=== PATIENT | male | born 1985 | race Caucasian/White ===

== ENCOUNTER 2022-01-11 13:12 | Inpatient (IN) | payer BC ==
[2022-01-11 14:10] VITALS: BMI 31.2
[2022-01-11] MEDS ORDERED: LOPERAMIDE HCL 2 MG CAPSULE PO PRN (14:32)
[2022-01-11] MEDS ORDERED: NALOXONE HCL (KLOXXADO) 8 MG SPRAY NS PRN (14:32)
[2022-01-11] MEDS ORDERED: BENZOCAINE/MENTHOL (CHLORASEPTIC ) LOZENGE MM PRN (14:32)
[2022-01-11] MEDS ORDERED: IBUPROFEN 600 MG TABLET (FP) PO PRN (14:32)
[2022-01-11] MEDS ORDERED: POLYETHYLENE GLYCOL (HEALTHYLAX) 3350 17 GM PACKET PO PRN (14:32)
[2022-01-11] MEDS ORDERED: MAGNESIUM HYDROX 2400MG/30ML ORAL SUSPENSION 30 ML CUP PO PRN (14:32)
[2022-01-11] MEDS ORDERED: LORazepam 2 MG TABLET PO ONE (14:32)
[2022-01-11] MEDS ORDERED: DICYCLOMINE HCL 10 MG CAPSULE PO PRN (14:32)
[2022-01-11] MEDS ORDERED: ONDANSETRON *ODT* 4 MG TABLET SL PRN (14:32)
[2022-01-11] MEDS ORDERED: NICOTINE 10 MG CARTRIDGE (INHALER) IH PRN (14:32)
[2022-01-11] MEDS ORDERED: ACETAMINOPHEN 325 MG TABLET (FP) PO PRN ×2 (14:32)
[2022-01-11] MEDS ORDERED: BISMUTH SUBSALICYLATE 524 MG/30 ML PO PRN (14:32)
[2022-01-11] MEDS ORDERED: MAG HYDROX/AL HYDROX/SIMETH 30 ML UNIT-DOSE CUP PO PRN (14:32)
[2022-01-11] MEDS ORDERED: OXYMETAZOLINE 0.05% NASAL SOLUTION 15 ML BOTTLE NS PRN (14:35)
[2022-01-11] MEDS ORDERED: LORazepam 1 MG TABLET PO PRN (14:45)
[2022-01-11] MEDS ORDERED: guaiFENesin/D-METHORPHAN HB 10 ML UNIT-DOSE CUPS PO PRN (14:56)
[2022-01-11] MEDS: LORazepam 2 MG TABLET PO SCH ×2 (17:49→22:25)
[2022-01-11] MEDS: hydrOXYzine PAMOATE 25 MG CAPSULE (FP) PO PRN (22:25)
[2022-01-11] MEDS: levETIRAcetam 500 MG TABLET (FP) PO SCH (22:25)
[2022-01-11] MEDS: THIAMINE HCL 100 MG TABLET (FP) PO SCH (22:25)
[2022-01-11] MEDS: MELATONIN 5 MG TABLETS PO SCH (22:25)
[2022-01-11] MEDS: AMOX TR/POT CLAV 875MG/125MG TABLETS (FP) PO SCH (22:25)
[2022-01-12] MEDS: LORazepam 2 MG TABLET PO SCH ×4 (05:17→22:14)
[2022-01-12] MEDS: PRENATAL VITAMINS W/ FOLIC ACID TABLET (FP) PO SCH (10:54)
[2022-01-12] MEDS: AMOX TR/POT CLAV 875MG/125MG TABLETS (FP) PO SCH ×2 (10:54→22:14)
[2022-01-12] MEDS: hydrOXYzine PAMOATE 25 MG CAPSULE (FP) PO PRN ×2 (10:54→22:15)
[2022-01-12] MEDS: levETIRAcetam 500 MG TABLET (FP) PO SCH ×2 (10:54→22:15)
[2022-01-12] MEDS: METHOCARBAMOL 500 MG TABLET PO PRN (10:54)
[2022-01-12 12:22] LABS: CALCIUM 8.4 mg/dL (8.5-10.1)
[2022-01-12 12:23] LABS: ALBUMIN 3.1 g/dl (3.4-5.0); BLOOD UREA NITROGEN 5.6 mg/dL (7-18)
[2022-01-12 12:27] LABS: CREATININE 0.5 mg/dL (0.55-1.3)
[2022-01-12 12:28] LABS: TOT PROT 6.4 g/dl (6.4-8.2)
[2022-01-12 12:29] LABS: BILIRUBIN,TOTAL 1.9 mg/dL (0.2-1)
[2022-01-12 12:44] LABS: HEMOGLOBIN 14.4 GM/dL (11.7-16.9); MCH 32.1 pg (25.7-33.7); MCHC 32.8 g/dl (32.0-35.9); MEAN CELL VOLUME 97.9 fl (80-96); MEAN PLT VOLUME 8.6 fl (7.5-11.1); PLATELET COUNT 186 10^3/uL (134-434); RDW 15.4 % (11.9-15.9)
[2022-01-12] MEDS: LACTULOSE 20 GM/30 ML UDC (FOR ORAL USE ONLY) PO SCH ×3 (14:09→22:15)
[2022-01-12] MEDS: THIAMINE HCL 100 MG TABLET (FP) PO SCH (22:15)
[2022-01-12] MEDS: MELATONIN 5 MG TABLETS PO SCH (22:15)
[2022-01-13] MEDS: LORazepam 1 MG TABLET PO SCH ×4 (05:37→22:48)
[2022-01-13] MEDS: LACTULOSE 20 GM/30 ML UDC (FOR ORAL USE ONLY) PO SCH ×4 (10:20→22:49)
[2022-01-13] MEDS: PRENATAL VITAMINS W/ FOLIC ACID TABLET (FP) PO SCH (10:20)
[2022-01-13] MEDS: AMOX TR/POT CLAV 875MG/125MG TABLETS (FP) PO SCH ×2 (10:20→22:47)
[2022-01-13] MEDS: levETIRAcetam 500 MG TABLET (FP) PO SCH ×2 (10:20→22:47)
[2022-01-13] MEDS: METHOCARBAMOL 500 MG TABLET PO PRN (10:22)
[2022-01-13 10:46] LABS: EPI CELLS 26 /uL (0-25.1); HYALINE CASTS 1 /uL (0-3.1); URINE APPEARANCE CLEAR; URINE BACTERIA 10 /uL (0-1359); URINE BILIRUBIN NEGATIVE (NEGATIVE); URINE COLOR DK YELLOW; URINE GLUCOSE (UA) NEGATIVE (NEGATIVE); URINE KETONE TRACE (NEGATIVE); URINE LEUK ESTERASE TRACE (NEGATIVE); URINE NITRITE NEGATIVE (NEGATIVE); URINE PROTEIN TRACE (NEGATIVE); URINE RBC 7 /uL (0-23.9); URINE UROBILINOGEN 0.2 mg/dL (0.2-1.0); URINE WBC 47 /uL (0-25.8)
[2022-01-13] MEDS: IBUPROFEN 400 MG TABLET (FP) PO PRN (17:40)
[2022-01-13] MEDS: THIAMINE HCL 100 MG TABLET (FP) PO SCH (22:47)
[2022-01-13] MEDS: MELATONIN 5 MG TABLETS PO SCH (22:49)
[2022-01-14] MEDS ORDERED: LORazepam 0.5 MG TABLET PO PRN
[2022-01-14] MEDS: LORazepam 0.5 MG TABLET PO SCH ×4 (05:36→22:07)
[2022-01-14] MEDS: IBUPROFEN 400 MG TABLET (FP) PO PRN (05:37)
[2022-01-14] MEDS: PRENATAL VITAMINS W/ FOLIC ACID TABLET (FP) PO SCH (10:10)
[2022-01-14] MEDS: levETIRAcetam 500 MG TABLET (FP) PO SCH ×2 (10:10→22:06)
[2022-01-14] MEDS: AMOX TR/POT CLAV 875MG/125MG TABLETS (FP) PO SCH ×2 (10:10→22:06)
[2022-01-14] MEDS: LACTULOSE 20 GM/30 ML UDC (FOR ORAL USE ONLY) PO SCH ×4 (10:14→22:24)
[2022-01-14 10:37] LABS: ALBUMIN 3.3 g/dl (3.4-5.0); BLOOD UREA NITROGEN 11.7 mg/dL (7-18); CALCIUM 9.1 mg/dL (8.5-10.1)
[2022-01-14 10:40] LABS: CREATININE 0.7 mg/dL (0.55-1.3)
[2022-01-14 10:42] LABS: BILIRUBIN,TOTAL 0.8 mg/dL (0.2-1)
[2022-01-14] MEDS: THIAMINE HCL 100 MG TABLET (FP) PO SCH (22:06)
[2022-01-14] MEDS: MELATONIN 5 MG TABLETS PO SCH (22:07)
[2022-01-15] MEDS ORDERED: LORazepam 0.5 MG TABLET PO ONE (05:00)
[2022-01-15 09:16] VITALS: BP 128/71; PULSE 85; RESP 16; TEMP 97.3
[2022-01-15] MEDS: LACTULOSE 20 GM/30 ML UDC (FOR ORAL USE ONLY) PO SCH (10:43)
[2022-01-15] MEDS: AMOX TR/POT CLAV 875MG/125MG TABLETS (FP) PO SCH (10:43)
[2022-01-15] MEDS: PRENATAL VITAMINS W/ FOLIC ACID TABLET (FP) PO SCH (10:44)
[2022-01-15] MEDS: levETIRAcetam 500 MG TABLET (FP) PO SCH (10:44)
== END 2022-01-15 09:30 | disposition home or self-care (01) | DRG 775 ==
LOC: YASAS 13:12 → Y6N 15:28
PROVIDERS: ADMIT Allergy & Immunology; ATTEND Surgery
PROC: HZ2ZZZZ Detoxification Services for Substance Abuse Treatment (ICD-10-PCS; principal; 2022-01-11)
DX: F10.230 Alcohol dependence with withdrawal, uncomplicated (principal); F17.210 Nicotine dependence, cigarettes, uncomplicated; G40.909 Epilepsy, unspecified, not intractable, without status epilepticus; J32.9 Chronic sinusitis, unspecified; M54.30 Sciatica, unspecified side; R79.89 Other specified abnormal findings of blood chemistry
CPT/HCPCS: 36415; 80053; 81003; 82140; 85027; 86780; 87811; 93005; 93010; C9803-CS; U0003; U0005

== ENCOUNTER 2023-04-07 09:57 | Inpatient (IN) | payer BC ==
[2023-04-07 10:31] VITALS: BMI 26.2
[2023-04-07] MEDS ORDERED: ACETAMINOPHEN 325 MG TABLET (FP) PO PRN (11:17)
[2023-04-07] MEDS ORDERED: BISMUTH SUBSALICYLATE 262 MG/15 ML BTL PO PRN (11:17)
[2023-04-07] MEDS ORDERED: NALOXONE HCL 0.4 MG/ML VIAL IM PRN (11:17)
[2023-04-07] MEDS ORDERED: MAGNESIUM HYDROX 2400MG/30ML ORAL SUSPENSION 30 ML CUP PO PRN (11:17)
[2023-04-07] MEDS ORDERED: NALOXONE HCL (KLOXXADO) 8 MG SPRAY NS PRN (11:17)
[2023-04-07] MEDS ORDERED: NICOTINE POLACRILEX 2 MG GUM BUC PRN (11:17)
[2023-04-07] MEDS ORDERED: BENZOCAINE/MENTHOL (CHLORASEPTIC ) LOZENGE MM PRN (11:17)
[2023-04-07] MEDS ORDERED: MAG HYDROX/AL HYDROX/SIMETH 30 ML UNIT-DOSE CUP PO PRN (11:17)
[2023-04-07] MEDS ORDERED: LOPERAMIDE HCL 2 MG CAPSULE PO PRN (11:17)
[2023-04-07] MEDS ORDERED: guaiFENesin 600 MG TABLET.ER (FP) PO PRN (11:17)
[2023-04-07] MEDS ORDERED: LORazepam 1 MG TABLET PO PRN (11:17)
[2023-04-07] MEDS ORDERED: BENZONATATE 200 MG CAPSULE PO PRN (11:17)
[2023-04-07] MEDS ORDERED: POLYETHYLENE GLYCOL (HEALTHYLAX) 3350 17 GM PACKET PO PRN (11:17)
[2023-04-07] MEDS ORDERED: METHOCARBAMOL 500 MG TABLET PO PRN (11:17)
[2023-04-07] MEDS ORDERED: DICYCLOMINE HCL 10 MG CAPSULE PO PRN (11:17)
[2023-04-07] MEDS ORDERED: levETIRAcetam 500 MG TABLET (FP) PO ONE (11:45)
[2023-04-07] MEDS ORDERED: LORazepam 2 MG TABLET ONE (11:46)
[2023-04-07] MEDS: LORazepam 2 MG TABLET PO ONE (11:48)
[2023-04-07] MEDS: levETIRAcetam 500 MG TABLET (FP) PO SCH (11:49)
[2023-04-07] MEDS: LORazepam 2 MG TABLET PO SCH (17:31)
[2023-04-07] MEDS: MELATONIN 5 MG TABLETS PO SCH (22:04)
[2023-04-07] MEDS: THIAMINE HCL 100 MG TABLET (FP) PO SCH (22:04)
[2023-04-08] MEDS: PRENATAL VITAMINS W/ FOLIC ACID TABLET (FP) PO SCH (10:39)
[2023-04-08 10:41] LABS: HEMATOCRIT 39.9 % (35.4-49); HEMOGLOBIN 13.9 GM/dL (11.7-16.9); MCH 34.3 pg (25.7-33.7); MCHC 34.8 g/dl (32.0-35.9); MEAN CELL VOLUME 98.7 fl (80-96); MEAN PLT VOLUME 8.4 fl (7.5-11.1); PLATELET COUNT 218 10^3/uL (134-434); RBC 4.04 M/mm3 (4.00-5.60); RDW 15.4 % (11.9-15.9); WHITE BLOOD COUNT 5.6 K/mm3 (4.0-10.0)
[2023-04-08 11:11] LABS: POTASSIUM 3.9 mmol/L (3.5-5.1)
[2023-04-08 11:22] LABS: BLOOD UREA NITROGEN 6.1 mg/dL (7-18); CALCIUM 8.8 mg/dL (8.5-10.1)
[2023-04-08 11:23] LABS: ALBUMIN 3.6 g/dl (3.4-5.0)
[2023-04-08 11:25] LABS: CREATININE 0.7 mg/dL (0.55-1.3)
[2023-04-08 11:27] LABS: BILIRUBIN,TOTAL 1.3 mg/dL (0.2-1); TOT PROT 7.4 g/dl (6.4-8.2)
[2023-04-08] MEDS: LACTULOSE 20 GM/30 ML UDC (FOR ORAL USE ONLY) PO SCH (17:42)
[2023-04-08] MEDS: IBUPROFEN 600 MG TABLET (FP) PO PRN (17:44)
[2023-04-08] MEDS: hydrOXYzine PAMOATE 25 MG CAPSULE (FP) PO PRN (17:44)
[2023-04-08] MEDS: ONDANSETRON *ODT* 4 MG TABLET SL PRN (17:44)
[2023-04-09] MEDS: LORazepam 1 MG TABLET PO SCH (06:00)
[2023-04-09] MEDS: IBUPROFEN 400 MG TABLET (FP) PO PRN (18:02)
[2023-04-10] MEDS ORDERED: LORazepam 0.5 MG TABLET PO PRN
[2023-04-10] MEDS: LORazepam 0.5 MG TABLET PO SCH (05:44)
[2023-04-11] MEDS: LORazepam 0.5 MG TABLET PO ONE (05:31)
[2023-04-11 09:53] VITALS: BP 133/87; PULSE 88; RESP 18; TEMP 97.1
== END 2023-04-11 11:20 | disposition home or self-care (01) | DRG 775 ==
LOC: YASAS 09:57 → Y6N 11:41
PROVIDERS: ADMIT Allergy & Immunology; ATTEND Surgery
PROC: HZ2ZZZZ Detoxification Services for Substance Abuse Treatment (ICD-10-PCS; principal; 2023-04-07)
DX: F10.230 Alcohol dependence with withdrawal, uncomplicated (principal); F17.210 Nicotine dependence, cigarettes, uncomplicated; G40.911 Epilepsy, unspecified, intractable, with status epilepticus
CPT/HCPCS: 36415; 80053; 80305; 80307; 82140; 82248; 85027; 86780; 87635; 87811; 93005; 93010; Q0162